=== PATIENT | male | born 1960 | race Caucasian/White ===

== ENCOUNTER 2016-12-02 21:23 | Inpatient (IN) | payer OTHER ==
[~2016-12-02] VITALS: Ht 177.8 cm; Wt 92.5 kg
[~2016-12-02 21:23] MED LIST: 0.9126SP NS; BACL10TA PO; CALC-962 PO; ELECTROLYTE PO; IBUP200C PO; LORA0.5T PO; ONDA8TAB7 PO; PRED50TA PO; PROC-4 PO; RANI150T11 PO; [UNRECOGNIZED DRUG - OTHER] PO
[2016-12-02 21:36] VITALS: BP 117/75; PULSE 134; RESP 16; O2SAT 94
[2016-12-02] MEDS ORDERED: 0.9% Sodium Chloride 1,000 ML IV ONE (21:57)
[2016-12-02 22:42] LABS: Mean Corpuscular Hemoglobin 30.7 pg (27.0-35.0); Mean Corpuscular Volume 94.4 fL (81-100); Platelet Count 55 bil/L (150-400)
[2016-12-02 22:53] LABS: Magnesium 1.9 mg/dL (1.6-2.6)
[2016-12-02] MEDS ORDERED: diphenhydrAMINE 25 mg Capsule PO PRN (23:10)
[2016-12-02] MEDS ORDERED: Cefepime Inj 2 GM in IV Premix 1 EACH IV ONE (23:10)
[2016-12-02] MEDS ORDERED: Cefepime Inj 2,000 MG in Dextrose 5% Minibag Plus 50 ML IV ONE (23:15)
[2016-12-02 23:23] LABS: BASOPHILS % (AUTO) 0 % (0-3); EOSINOPHILS % (AUTO) 6 % (0-5); MONOCYTES % (AUTO) 4 % (4-12); NEUTROPHILS % (AUTO) 80 % (40-74)
--- NOTE | 2016-12-02 23:35 | ED.REPORT ---
HPI-General Illness Date of Service Dec 02, 2016 ED Provider: Joseph Aragon MD History of Present Illness: Patient is a 56 y.o. M with history of Diffuse large B cell lymphoma, no other medical illnesses, leon cath. Last chemo treatment 11/26/16 booster shot for nulasta last thursday. Pateint present with cough since 11/25/16 that continued for one week and worsened in the last 24 hours. Patient noted he felt feverish this afternoon felt cold. Took tylenol with minimal relief. Associated with nausea, productive cough, suffy nose, itchy eyes, headaches. Sick contacts repoted son with sinus infection. Denies dizziness, vomiting, diarrhea, constipation. Nursing Notes Stated Complaint: FEVER, IN CHEMO Chief Complaint: FLU/Cold Symptoms Nursing Notes Reviewed: Yes Allergies: Coded Allergies: Penicillins (Verified Allergy, Unknown, itching, swelling, 12/02/16) Scheduled ([Electrolyte Caps]) 1 CAPSULE PO DAILY Ibuprofen (Ibuprofen) 200 Mg Capsule 200 MG PO prn Prochlorperazine Maleate (Compazine) 10 Mg Tablet 10 MG PO prn Ranitidine (Zantac) 150 Mg Tablet 75 MG PO DAILY Scheduled PRN Baclofen (Baclofen) 10 Mg Tablet 10 MG PO QID PRN PRN prn Calcium Carbonate/Simethicone (Ira-[place] Heartburn+Gas) 750 Mg-80 Mg Tab.chew 1 EACH PO PRN PRN Lorazepam (Lorazepam) 0.5 Mg Tablet 1 MG PO A PRN PRN For Insomnia Ondansetron ODT (Zofran ODT) 8 Mg Tablet 8 MG PO Q4H PRN PRN For Nausea Prednisone (PredniSONE) 50 Mg Tablet 50 MG PO DAILY PRN PRN x 5 days following tx Miscellaneous Medications 0.9 % Sodium Chloride (Nasal Mist) 126 Ml [place] 126 ML NS General Time Seen by MD: 21:45 Chief Complaint Other (Fever, recent chemotherapy) Hx Obtained From: Patient, Spouse Arrived By: Walk-in Onset Occurred: 6 days ago Symptom Duration: Since onset Severity: Current: No pain currently Severity: Maximum: No pain Recent Healthcare: Recent doctor visit (11/26/16 ONCOLOGY ) Past Medical History Past Medical History Diffuse large Bcell Lymphoma Smoking History Never Smoker Social History Alcohol Use: Denies alcohol use Review of Systems Full Review of Systems Constitutional: Reports: Chills, Fatigue, Fever Eyes: Denies: Blurred bilateral Ears / Nose / Throat: Denies: Ear drainage bilateral Respiratory: Reports: Prod cough, white, Shortness of breath Cardiovascular: Denies: Chest pain, Dyspnea on exertion, Syncope GI: Reports: Constipation, Denies: Abdominal pain, Bloody/tarry stool, Diarrhea Complete sys rev & neg: except as marked. Physical Exam Vital Signs Vital Signs Date Time Temp Pulse Resp B/P Pulse Ox O2 Delivery O2 Flow Rate FiO2 12/03/16 01:13 36.9 104 16 115/71 95 Room Air 12/02/16 21:36 37.9 134 16 117/75 94 Room Air Initial VS: Reviewed General/Constitutional: Well-developed, Well-nourished Head / Eyes: Atraumatic, Normocephalic, PERRL ENT: Mucous membranes moist, Conjunctiva normal, No scleral icterus Neck: Supple, Non-tender, Full range of motion Cardiovascular: Heart sounds normal, Intact distal pulses Abdomen / GI: Soft, Non-tender, No guarding, No rebound, No distention Back: No CVA tenderness Lymphatic: No lymphadenopathy General/Constitutional: Awake, Alert, Well appearing Head / Eyes: Normocephalic, PERRL, EOMI ENT: Airway patent, Mucous membranes moist Pharynx / Tonsils / Uvula: Positive: Pharyngeal erythema Nose: Positive: Rhinorrhea Neck: Supple, No meningismus, Full range of motion, No swelling, Non-tender, No masses Respiratory / Chest: Atraumatic, Breath sounds = bilat, No respiratory distress , No retractions, No chest tenderness, No chest wall deformity Wheezing / Retractions: Positive: Wheezing mild Rales / Rhonchi: Negative: Rales L base, Rales R base, Rales bilateral bases Cardiovascular: Regular rhythm, Heart sounds NL, Cap refill not delayed, Peripheral circulation NL Heart Rate / Rhythm: Positive: Tachycardia Abdomen: Non-tender, No guarding, No rebound Lymphatic: No axillary adenopathy, No inguinal adenopathy Adenopathy: Positive: Submental bilateral Interpretation & Diagnostics Lab Results Interpretation Result Diagram: 12/02/16219912/02/16 220 Test 12/02/16 22:00 12/03/16 00:09 White Blood Count 0.9th/mm3 (3.8-10.1) Red Blood Count 3.19mil/mm3 (4.40-5.80) Hemoglobin 9.8g/dL (13.8-17.2) Hematocrit 30.1% (41.0-50.0) Mean Corpuscular Volume 94.4fL (81-100) Mean Corpuscular Hemoglobin 30.7pg (27.0-35.0) Mean Corpuscular Hemoglobin Concent 32.6% (32.0-37.0) Red Cell Distribution Width 14.2% (12.3-15.4) Platelet Count 55bil/L (150-400) Neutrophils (%) (Auto) 80% (40-74) Lymphocytes (%) (Auto) 10% (14-46) Monocytes (%) (Auto) 4% (4-12) Eosinophils (%) (Auto) 6% (0-5) Basophils (%) (Auto) 0% (0-3) Band Neutrophils % 0% (1-5) Sodium Level 137mEq/L (134-144) Potassium Level 3.7mEq/L (3.5-5.2) Chloride Level 100mEq/L (97-108) Carbon Dioxide Level 26mmol/L (18-29) Blood Urea Nitrogen 21mg/dL (6-24) Creatinine 0.77mg/dL (0.76-1.27) Estimat Glomerular Filtration Rate 111mL/min (>59) Glucose Level 135mg/dL (60-99) Lactic Acid Level 1.6mmol/L (0.4-2.0) Calcium Level 8.7mg/dL (8.5-10.1) Magnesium Level 1.9mg/dL (1.6-2.6) Total Bilirubin 0.5mg/dL (0.0-1.2) Aspartate Amino Transf (AST/SGOT) 19U/L (0-50) Alanine Aminotransferase (ALT/SGPT) 47U/L (0-44) Alkaline Phosphatase 79U/L (25-150) Total Protein 5.7g/dL (6.4-8.4) Albumin 3.6g/dL (3.4-5.0) Procalcitonin 0.41ng/mL (0.00-0.08) Urine Color Dark yellow (YELLOW) Urine Appearance Hazy (CLEAR,HAZY) Urine pH 5.5 (5.0-8.0) Urine Specific [place] 1.025 (1.003-1.035) Urine Protein Negativemg/dL (NEG,TRACE) Urine Glucose (UA) Negativemg/dL (NEGATIVE) Urine Ketones Negativemg/dL (NEGATIVE) Urine Occult Blood Trace (NEGATIVE) Urine Nitrite Negative (NEGATIVE) Urine Bilirubin Negative (NEGATIVE) Urine Urobilinogen Normalmg/dL (NORMAL) Urine Leukocyte Esterase Negative (NEGATIVE) Urine RBC 0-2/hpf (0-2) Urine WBC 0-5/hpf (0-5) Urine Epithelial Cells Occasional/hpf (NONE-MOD) Urine Crystals None seen (NONE SEEN) Urine Bacteria None/hpf (NONE-FEW) Urine Hyaline Casts None/lpf (NONE) Urine Granular Casts None seen (NONE SEEN) Urine Waxy Casts None seen (NONE SEEN) Urine Red Blood Cell Casts None seen (NONE SEEN) Urine White Blood Cell Casts None seen (NONE SEEN) Urine Mucus Present (None Seen) Urine Trichomonas None seen (NONE SEEN) Urine Yeast None (NONE SEEN) Urinalysis Comment None Urine Culture Reflexed Not indicated ECG Interpretation ECG Interpretation: Sinus tachycardia Time: 23:26 Abnormal Rate: 130 X-Ray Chest Interpretation View: Portable Interpretation / Wet Read by: Wet read Resident NL X-Ray Chest Findings: No infiltrate, Normal heart size Re-Eval/Medical Decision Med Decision/Clinical Course Severe neutropenia WCT 0.9 with low grade fever 37.9 HR 130 Patient meets criteria for neutropenic fever, meets SIRS criteria MASCC score 17 Patient given bolus 1 L NS IV Started antibiotic therpay Cefapime 2 gm IV Q8 per oncology reccomendations Blood cultures drawn and sent for bacterial and fungal culture Sputum culture sent for stain and culture Viral PCR ordered Chest X-Ray did not show signs of acute pneumonia Urine unlikely source of infection, UA negative for bacteria and WBC, sent fo culture Procalcitonin 0.41, raises concern for underlying bacterial infection Reccomend ID consult in AM Case discussed with Dr. Askew who agrees to see patient tomorrow morning. Patient is a 56 y.o. male with recent chemotherapy 11/26/16 and nulasta therapy 11/28/16 based on patient presenting symptoms and history patient meets criteria for SIRS and neutropenic fever. He will require inpatient admission to r/o serious underlying infection and recieve emperic antibiotic treatment. Patient is immunocompromised and thus needs to be worked up for a broad range of infections both common and opportunisitic. Condition at time of admission is henodyamically stable. Consultation #1: Referral / Consult Name: Manjeet Chapman MD Consulted With: On-call physician (oncology) Requested Call at: 23:28 Call Returned at: 23:29 Centrifugal Supervisor: Will see patient, Agrees with plan Note: Discussed patient presentation with Dr. Askew reccomends 2 g Cefepime Q8 IV, if patient remains symptomatic consider adding zosyn and vancomycin Consultation #2: Referral / Consult Name: Cassandra Scott MD Centrifugal Supervisor: Agrees with plan Note: Discussed need for admit and consultation with Dr. Askew. Counseled Regarding: Diagnosis, Lab results, Need for admission Discharge & Departure Primary Impression: Upper respiratory infection URI type: unspecified viral URI Qualified Code: J06.9 - Acute upper respiratory infection, unspecified Additional Impressions: Fever Fever type: other Qualified Code: R50.81 - Fever presenting with conditions classified elsewhere Neutropenia Neutropenia type: secondary to cancer chemotherapy Qualified Code: D70.1 - Agranulocytosis secondary to cancer chemotherapy Diffuse large B cell lymphoma Lymphoma site: unspecified region Qualified Code: C83.30 - Diffuse large B- cell lymphoma, unspecified site SIRS (systemic inflammatory response syndrome) Disposition: ADMITTED TO HOSPITAL Discharge Condition All VS Reviewed: Yes Condition: Stable Referrals: Arthur Tracy MD (PCP) Attending Statement As attending of record for this patient, I conducted an independent history and physical examination, and agree with the resident documentation as above, and as amended. RAVI SPAERS DO Dec 02, 2016 21:57 Joseph Aragon MD Dec 03, 2016 07:32
[2016-12-02] MEDS: Ondansetron 2 mg/mL 2 mL Inj IV PRN (23:36)
[2016-12-03] VITALS (7 sets, daily range): BP systolic 111–148; BP diastolic 70–82; PULSE 97–117; RESP 16–20; O2SAT 90–97
[2016-12-03 00:15] LABS: APPEARANCE,URINE HAZY (CLEAR,HAZY); COLOR,URINE DARK YELLOW (YELLOW); OCCULT BLOOD,URINE TRACE (NEGATIVE); PH,URINE 5.5 (5.0-8.0); UROBILINOGEN,URINE NORMAL (NORMAL)
[2016-12-03] MEDS: 0.9% Sodium Chloride 1,000 ML IV SCH ×3 (02:35→22:35)
[2016-12-03] MEDS ORDERED: Polyethylene Glycol (PEG) 17 Gm Powder PO PRN (02:35)
[2016-12-03] MEDS ORDERED: Alum-Mag Hydrox-Simeth 30 mL Suspension PO PRN (02:35)
--- NOTE | 2016-12-03 03:08 | PCM.HPMED ---
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 Askew) , and HDL chemotherapy-related agranulocytosis. Last chemo treatment was 2016. He received a booster shot for Nulasta last Thursday. Pateint presented with cough reductive clear sputum, fever, chills, sweats since one week ago that has persisted and worsened in the last 24 hours. Patient reports he took Tylenol with minimal relief. Associated in terms include nausea, productive cough, headaches. He reports his son has a sinus infection. Denies dizziness , vomiting, diarrhea, constipation, dysuria, hematuria, hematochezia, body aches , recent travel. In the ED temperature was 37.9H, pulse 134, respiratory rate 16, blood pressure 117/75, 94% on room air. Repeat vitals showed temperature 36.9, pulse 104, blood pressure 115/71, respirations 16 and 95% room air. Hemogram: White blood cell count 0.9, hemoglobin 9.8, hematocrit 30.1, platelet count 55, neutrophils 80%. UA: Urine color was dark, hazy, trace occult blood, mucus present, otherwise normal Procalcitonin 0.41 EKG: Sinus tachycardia with a rate of 130 CXR: No infiltrate normal heart size Review of Systems: A comprehensive review of systems was conducted and found to be negative except as mentioned in history of present illness. Allergies Coded Allergies: Penicillins (Verified Allergy, Unknown, itching, swelling, 12/02/16) Home Medications ([Electrolyte Caps]) 1 CAPSULE PO DAILY Ibuprofen (Ibuprofen) 200 Mg Capsule 200 MG PO prn Prochlorperazine Maleate (Compazine) 10 Mg Tablet 10 MG PO prn Ranitidine (Zantac) 150 Mg Tablet 75 MG PO DAILY PRN Baclofen (Baclofen) 10 Mg Tablet 10 MG PO QID PRN PRN prn Calcium Carbonate/Simethicone (Ira-[place] Heartburn+Gas) 750 Mg-80 Mg Tab.chew 1 EACH PO PRN PRN Lorazepam (Lorazepam) 0.5 Mg Tablet 1 MG PO A PRN PRN For Insomnia 0.9 % Sodium Chloride (Nasal Mist) 126 Ml [place] 126 ML NS PMH Diffuse large B-cell Lymphoma Surgical History Right orchiectomy August 13 secondary to new diagnosis of diffuse B-cell lymphoma Port-A-Cath July 2016 Left knee surgery Family History Negative history Social History Hx Alcohol Use: Yes Hx Substance Use: No Hx Tobacco Use: No Smoking Status: Never Smoker Living Arrangement: with Family ( is Oct [phone]) Exam Vital Signs Vital Sign - Last Date Time Temp Pulse Resp B/P Pulse Ox O2 Delivery O2 Flow Rate FiO2 12/03/16 01:13 36.9 104 16 115/71 95 Room Air Exam General: Patient appears her stated age, no acute distress, resting comfortably in bed, wearing protective facemask, denies pain HEENT: NC/AT, eyes equally round reactive to light and accommodation, EOMI, neck supple, no adenopathy, no masses no JVD, no thyromegaly, throat no erythema no exudates, Lungs: Very mild crackles heard bilaterally, negative wheezes negative rhonchi, chest with Port-A-Cath of the left anterior chest Heart: Regular rate and rhythm no murmur, S1-S2 Abdomen: Abdomen soft nontender active bowel tones, no rebound no guarding, no fluid wave, no masses, no hepatomegaly, no splenomegaly Genitourinary: CVA tenderness and no suprapubic tenderness, status post right orchiectomy Extremities: No edema bilateral, also is equal bilateral upper/lower extremity Neurologic: No nerves II through XII grossly intact, speech HEENT full sentences , no focal signs, Skin: Skin is warm and dry with good turgor Psychiatric: Mood and affect are upbeat and congruent Lab and Diagnostics Result Diagram: 12/02/16219912/02/162199 X-Rays, CTs and MRIs CXR wet read was no acute cardiopulmonary process normal heart size 12-lead ECG Sinus tachycardia with a rate of 130 Assessment & Plan This is a pleasant 56-year-old male with history of diffuse large B cell lymphoma who presented to [facility] ED with neutropenic fever and B type symptoms. Patient was admitted for further workup and IV antibiotics. # Neutropenic fever, present remission, active -Patient describes fevers chills, sweats, B type symptoms, cough productive of clear mucus, worsening over the past week -In the ED patient had low-grade fever of 37.9 -SIRs criteria for elevated heart rate and temperature -He currently on chemotherapy for diffuse large B-cell lymphoma,Patient just completed fifth and the final cycle of chemotherapy on RCHOP (R rituximab) C cyclophosphamide H doxorubicin (hydroxydaunomycin) O vincristine (Oncovin ) P prednisolone (a steroid). Last cycle was finished on Thursday of last week. -Port-A-Cath placed June 2016 -Patient is followed by oncologist Dr. Askew -Patient received Neulasta injection on 11/26/2016 -Chest x-ray: Wet read showed no acute cardiopulmonary process normal cardiac silhouette -EKG was sinus tachycardia with a rate of 130 -UA was negative for signs of UTI -Pro calcitonin of 0.41 -White blood cell count 0.9, neutrophils 80% -Blood cultures 4 ordered pending -Viral PCR ordered and pending -Place patient on isolation airborne contact precautions -MRSA screen ordered pending -Influenza A and B ordered and pending -Legionella and strep pneumo urine antigen ordered and pending -In the ED patient was given cefepime 2 g -We will repeat for morning labs, CBC, CMP -Recommend infectious disease consult first thing in the morning -Continue empiric antibiotic treatment with cefepime 2 gm Q8H, as recommended by oncology #Thrombocytopenia, present on admission active -Likely related to chemotherapy -Plate account [id number] - we will continue to monitor with serial CBC Disposition: Admitted to in patient service with expected length of stay greater than 2 days, secondary to severity of presenting symptoms, treatment plan, complexity of clinical work up, and risk of adverse events. CODE STATUS: Full code PCP: Arthur Tracy DVT prophylaxis: Subcutaneous heparin Contact: is Oct [phone] Pain Evaluation: Adequate Pain Control VTE Prophylaxis: Sub-Q Heparin (Unfractionated) Resuscitation Status: CPR: Attempt Resuscitation Attending Statement Pt seen and examined by myself and agree with above plan. Deny Hooks DO Dec 03, 2016 02:05 Cassandra Scott MD Dec 03, 2016 06:42
[2016-12-03] MEDS: Heparin 5,000 Unit/mL Inj SUBQ SCH ×3 (08:09→23:44)
[2016-12-03] MEDS ORDERED: Cefepime Inj 2 GM in Dextrose 5% Minibag Plus 50 ML IV SCH (08:30)
--- NOTE | 2016-12-03 08:49 | DRSVH ---
PROCEDURE: X-RAY CHEST ONE VIEW, PORTABLE ([id number]) INDICATIONS: fever TECHNIQUE: One view of the chest was acquired. COMPARISON: [facility], CR, XR CHEST 1VW (PORTABLE), 08/21/2016, 12:22. FINDINGS: Surgical changes and devices: Stable positioning of left subclavian chest port. Lungs and pleura: No pleural effusions or pneumothorax. Lungs are clear. Mediastinum: Mediastinal contours appear normal. Heart size is normal. Bones and chest wall: No suspicious bony lesions. Overlying soft tissues appear unremarkable. IMPRESSION: No acute cardiopulmonary disease. Dictated by: Andi GARSIA Interpreted: Drew Gardner MD on 12/03/2016 at 8:47 Transcribed by: RAYMOND on 12/03/2016 at 8:48 Approved by: Drew Gardner M.D. on 12/03/2016 at 10:38
[2016-12-03] MEDS: Cefepime Inj 2,000 MG in Dextrose 5% Minibag Plus 50 ML IV SCH ×3 (09:07→23:45)
[2016-12-03] MEDS: Ondansetron 2 mg/mL 2 mL Inj IV PRN (10:56)
--- NOTE | 2016-12-03 11:49 | CONS ---
[address] [address] CONSULTATION REPORT PATIENT: ELIZABETH ORELLANA : 1960 MR#: [id number] ADMIT: 12/03/2016 JOB ID: [id number] DATE OF SERVICE: 12/03/2016 INFECTIOUS DISEASE CONSULTATION: I thank Dr. Askew for this timely consult. REASON FOR CONSULTATION: RSV in a patient with borderline neutropenia who is status post recent chemotherapy. HISTORY OF PRESENT ILLNESS: The patient is a previously healthy 56-year-old gentleman who was diagnosed with diffuse B-cell lymphoma of the right testicle in the fall. He underwent orchiectomy which was performed because it was thought he had a testicular cancer, of course, but it turned out to be a large B-cell lymphoma. Bone marrow and PET were negative and he was started on R-CHOP. Just a week ago, he finished his last planned treatment with R-CHOP and he was doing very well including having received some intrathecal chemotherapy. The patient notes that about one week ago he started to have some dry cough, low-grade fever, chills, sweats and headache. He notes that this worsened starting on December 01 and continuing into December 02 and he eventually had a temperature of 101 at home. He had been told to seek medical care if his temperature reached that level and so he presented complaining of the fever to 101, some chills, sweats, generalized malaise and a dry cough. There was also some associated nausea but without vomiting or diarrhea. At no point was he short of breath with exertion or did he have any pleuritic chest pain or significant sputum production. There was no change in his mentation at any point. There has been no recent travel or unusual exposures except for his adult son who has sinusitis by report with persistent cough as well. PAST MEDICAL HISTORY: 1. B-cell lymphoma. 2. Status post right orchidectomy July 2016 which resulted in that diagnosis. 3. Distant history of left knee surgery. SOCIAL HISTORY: The patient drinks alcohol socially but has never smoked. 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 He has never lived overseas. FAMILY HISTORY: Negative including the fact that none of his parents, uncles, aunts or siblings have never had tuberculosis. REVIEW OF SYSTEMS: Was done. The patient states he has had a fairly subtle headache for a week or so. There has been no change in his vision, no sneezing, no sore throat or trouble swallowing. He has had a persistent dry cough for a week without any shortness of breath, pleuritic chest pain or substernal chest pain. There has never been hemoptysis. He has had nausea for several days and he is not sure if this is due to his current febrile illness or chemo. There has been no vomiting and no diarrhea. He has had no dysuria, urgency or frequency nor has he had any problem with the incision site from the right orchidectomy which was done in the fall. He has not noticed any swollen lymph nodes in his neck or his groin. He has had no trouble with ambulation, no swelling joints and no skin rash. Remainder of the review of systems is negative. PHYSICAL EXAMINATION: Reveals an afebrile gentleman, temperature is 37 degrees right now. He was as high as 37.9 on admission. His pulse is currently 113, respiratory rate 20, blood pressure 121/72. He is saturating 90%-95% on room air. The examination of the mental status is completely unremarkable. The patient is clear and able to give an excellent history. He is in no acute distress. Head without trauma. Eyes without conjunctivitis. Nose normal. Oral cavity: No thrush, hairy leukoplakia, pharyngitis or gingivitis. Neck: Supple. No JVD. No supraclavicular or cervical adenopathy. Lungs with a few crackles at the right base. Very localized. Cardiac tones: Regular rate and rhythm without murmur. A port is present in the left upper chest and is benign. The abdomen is soft and nontender without organomegaly. There is no suprapubic fullness and no Lowe catheter. No inguinal or femoral adenopathy is noted. The extremities are without synovitis. Strength is 5/5 throughout. No rash is noted. No edema of the extremities. Neurologically he is completely intact. LABORATORIES: Include a white count last night when he was admitted of 900. There are 80% segs. Absolute neutrophil count is 720 so he does not actually have an absolute neutropenia. His creatinine is 0.77. His LFTs normal except for an ALT slightly up at 47. Procalcitonin is 0.41 on initial measurement. Urinalysis without white cells. Spinal fluid was done a month ago as part of his intrathecal chemotherapy regimen and had only one white cell. Serologically note that the patient is negative for hepatitis B as well as Hep C. Cultures include blood cultures done yesterday which are negative x3 sets. A MRSA screen of the nose is pending. A respiratory viral panel is positive for RSV. A chest x-ray done yesterday is normal. His testicular ultrasound done yesterday shows that the left testicle appears normal. IMPRESSION: This is a patient who was admitted yesterday because of a fever of 101 at home in association with borderline neutropenia. His total absolute neutrophil count though was 720 so he is not actually absolutely neutropenic and we do have another explanation for his fever in that he does have respiratory syncytial virus. He is not short of breath at all and appears entirely comfortable on room air so I see no indication to consider ribavirin or IVIG therapy. There is no strong clinical evidence that he has a bacterial superinfection or an unassociated bacterial infection at this time and I think the most prudent course here would just be to watch while he continues to receive the broad-spectrum cefepime he has been started on. If the patient looks good for a day or two, I think we can go ahead and simply stop his antibiotics. Also note that a recent article suggested that we treat too many people as inpatients with febrile neutropenia. This might be a candidate to be discharged with moxifloxacin as a single antibiotic and then closely watched as an outpatient, but for now I think it is reasonable to keep him in the hospital with cefepime while we wait for maturation of his cultures and avoid any specific RSV therapy. RECOMMENDATIONS: 1. Continue with cefepime. 2. No RSV therapy at this time. 3. Should the patient's respiratory status worsen in any way, will repeat a chest x-ray. 4. I have asked for an incentive spirometer for this patient.
--- NOTE | 2016-12-03 13:51 | NUR ---
filling station laborerdag sprayer note: 56 yrs old male admitted to room 1021 for RSV. S/P R-CHOP chemotherapy Regimen. Patient is independent at home with ADL's. Patient denies any care needs at this time. Will continue to monitor and address any care needs as they arrive.
[2016-12-03] MEDS: 0.9% Sodium Chloride 250 ML IV SCH (14:31)
[2016-12-03] MEDS ORDERED: Sodium Chloride LOK Flush 10 mL Syringe IVFLUSH PRN ×2 (14:35)
[2016-12-03] MEDS ORDERED: HepLOK Flush 100 unit/mL 5 mL Inj IVFLUSH PRN (14:35)
--- NOTE | 2016-12-03 15:45 | NUR ---
Social Work-screening: Data:EMR Reviewed. Pt is a 56 y/o male who was admitted on 12/03/16 per H&P. [facility] and PCP is Arthur Tracy MD. EMR reviewed. Pt resides at home with his where he remains independent with ADLS. Per RN notes, pt has been up independent in his room. Pt is followed by Dr. Askew from Oncology, SW spoke with Nena RN with oncology no confirms needs. Pt's to provide transport home. No discharge needs identified. SW will continue to follow if needs arise. Assessment:Pt who is independent at baseline. Plan:Pt to discharge home when medically stable via POV. No discharge needs identified. SW will continue to follow if needs arise. SUSIE Strong
--- NOTE | 2016-12-03 19:36 | NUR ---
IS IS ordered by ID. In afternoon, no RT had brought IS. Call to RT re: IS and pt teaching performed. At dinner time, pt noted to be performing exercises and stated effective. Stated improved breathing and able to clear his lungs, no sputum. Encouraged pt to be upright for increased lung capacity. Care continues.
--- NOTE | 2016-12-03 19:57 | CCS NOTE ---
[facility] [address], [address] [address] MEDICAL ONCOLOGY OFFICE NOTE PATIENT: ELIZABETH ORELLANA : 1960 MR#: [id number] DATE: 12/03/2016 JOB ID: [id number] DATE: 12/03/2016 HISTORY OF PRESENT ILLNESS: The patient is a 56-year-old gentleman being treated for lymphoma. I was contacted by the ED physician last night with him presenting with fever, malaise and cough and body ache with a temperature of 101. His white count was low with 0.9. Differential was pending. I recommended that he be admitted and started on cefepime pending cultures for neutropenic fever. 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 He received his 5th and final cycle of chemotherapy with R-CHOP a week ago and received Neulasta injection which is long-acting G-CSF on November 28. He has received also five doses of prophylactic intrathecal chemotherapy with methotrexate, the last one on November 25. His absolute neutrophil count is actually better than initially expected since he has 80% neutrophils of 0.9 with an absolute neutrophil count of 720. Platelet count is down to 55 from usually normal. Hemoglobin down to 9.8. His chemistry shows no significant derangements. Vitals show fever around 38 and he has been slightly tachycardic with heart rate around 110. Blood pressure normal. His O2 sat was borderline low with 90% but has improved. His chest x-ray showed no infiltrate. Blood culture has been so far negative but respiratory culture was positive for respiratory syncytial virus (RSV). Urinalysis negative. On exam, he does not appear toxic but weak. His lungs are clear to auscultation. Heart is slightly tachycardic but regular. No rash. No oral cavity lesion. ASSESSMENT: A 56-year-old gentleman with stage IE testicular large B-cell lymphoma who is one week post cycle number five of R-CHOP and five days from receiving long-acting G-CSF Neulasta. He presents with a respiratory infection and flu-like symptoms and mild fever in the setting of moderate neutropenia. I contacted Dr. Herndon for an evaluation by Infectious Disease regarding advisability of active therapy for the RSV virus, although he did not appear very ill. His oxygen level was borderline low but has improved through the rest of the day. His neutropenia should be short-lived and the effects of Neulasta should reverse his neutropenia relatively quickly within the next couple of days. Dr. Herndon felt that the RSV virus infection was not severe enough to require any IVIG which is also what I have in my impression from seeing him today. I expect him to stay in the hospital for one or two days and hopefully see a trend towards improvement of his white count by tomorrow or the day after.
[2016-12-04 01:03] VITALS: BP 114/71; PULSE 108; RESP 18; O2SAT 93
--- NOTE | 2016-12-04 01:49 | NUR ---
Mobility Up ind. and ind. with ADLs.Gait steady yet tires easily.VSS.Denies pain/nausea thus far.Sleeping intermittently and resting comfortably at this time.Will cont. to monitor.
[2016-12-04] MEDS: Ondansetron 2 mg/mL 2 mL Inj IV PRN ×2 (03:17→18:26)
[2016-12-04] MEDS: 0.9% Sodium Chloride 1,000 ML IV SCH ×2 (05:26→16:35)
[2016-12-04 06:08] VITALS: BP 107/68; PULSE 106; RESP 18; O2SAT 93
[2016-12-04 08:00] LABS: Mean Corpuscular Hemoglobin 30.8 pg (27.0-35.0); Mean Corpuscular Volume 93.4 fL (81-100)
[2016-12-04] MEDS: Heparin 5,000 Unit/mL Inj SUBQ SCH (08:30)
[2016-12-04 08:49] LABS: BASOPHILS % (AUTO) 6.3 % (0-3); EOSINOPHILS % (AUTO) 9.4 % (0-5); MONOCYTES % (AUTO) 28.1 % (4-12); NEUTROPHILS % (AUTO) 12.4 % (40-74)
[2016-12-04] MEDS: Cefepime Inj 2,000 MG in Dextrose 5% Minibag Plus 50 ML IV SCH ×2 (09:08→16:34)
[2016-12-04 11:09] VITALS: BP 109/68; PULSE 118; RESP 18; O2SAT 91
[2016-12-04 13:21] VITALS: BP 129/75; PULSE 118; RESP 18; O2SAT 92
--- NOTE | 2016-12-04 13:55 | NUR ---
MCCOLLUM: P: Patient had a headache. 02/25 I: Patient was given 650 mg of Tylenol PO E: Patient's headache went down to a 10-tolerable
--- NOTE | 2016-12-04 14:29 | PROG NOTE ---
[address] [address] PROGRESS NOTE PATIENT: ELIZABETH ORELLANA : 1960 MR#: [id number] ADMIT: 12/03/2016 JOB ID: [id number] DATE: 12/04/2016 INFECTIOUS DISEASE FOLLOWUP NOTE: REASON FOR FOLLOWUP: Neutropenic fever. INTERVAL HISTORY: The patient reports he is feeling considerably better today. He notes his overall energy and mood are improved. He denies sore throat, cough, shortness of breath, chest pain, nausea, vomiting, or diarrhea. No abdominal pain. No dysuria. He does have a little bit of a dry cough but if anything it is better than yesterday. He is curious about when he can be discharged. PHYSICAL EXAMINATION: Reveals a completely afebrile gentleman. He did have a fever to 38.3 yesterday evening. His temperature now 36.7. He has been afebrile for over 12 hours. His pulse is currently about 110, respiratory rate 18, blood pressure 129/75. He is saturating 92% on room air. He is awake and alert. Oral cavity without pharyngitis or thrush. Lungs quite clear bilaterally today. Cardiac tones regular rate and rhythm, with soft 1/6 systolic ejection murmur heard best along the lower left sternal border. A port in the left upper chest is benign. His abdomen is soft and nontender, without organomegaly. He does not have a Lowe catheter. No skin rash is noted. LABORATORIES: Include a white count of 400, a platelet count 39,000. Note that he is neutropenic today and he was not yesterday. Today his total neutrophil count is about only 50, and so it is dramatically lower than yesterday when he still had a neutrophil count of 700. Urinalysis without white cells. Micro includes negative urine Legionella, negative blood cultures, negative MRSA screen, and a positive viral panel for RSV. A Chest x-ray from yesterday is clear. IMPRESSION: This patient now fulfills the diagnosis diagnostic criteria for febrile neutropenia. His neutrophil count was 700 yesterday and now it is about 50 and he did spike a low-grade fever last night. I suspect that his fever as well as his dry cough is secondary to the respiratory syncytial virus that we know he has. I suspect he does not have any underlying bacterial superinfection at this point. RECOMMENDATIONS: 1. Will continue with cefepime now that his white count is low and he has had some fevers. 2. No specific therapy for RSV is indicated. 3. As his white count improves, he can be discharged on oral moxifloxacin.
[2016-12-04] MEDS: 0.9% Sodium Chloride 250 ML IV SCH (14:31)
--- NOTE | 2016-12-04 14:37 | PCM.PNMED ---
Subjective Date of Service Dec 04, 2016 Subjective Follow-up for febrile neutropenia. Patient seen and examined at bedside. He had fever overnight. No chills. Leukopenia and thrombocytopenia is worsening. Abdominal pain, nausea and vomiting, no chest pain or shortness of breath, no cough Exam Vital Signs Vital Sign - Last Date Time Temp Pulse Resp B/P Pulse Ox O2 Delivery O2 Flow Rate FiO2 12/04/16 13:21 36.7 118 18 129/75 92 Room Air Intake and Output 12/03/16 12/03/16 12/04/16 Cumulative From/Thru 15:00 23:00 07:00 12/02/16 21:36 - 12/04/16 06:14 Intake Total 1343 ml 1616 ml 2959 ml Output Total 725 ml 700 ml 1425 ml Balance 618 ml 916 ml 1534 ml Intake Oral 500 ml 400 ml 900 ml IV Total 843 ml 1216 ml 2059 ml Output Urine Total 725 ml 700 ml 1425 ml # Bowel Movements 0 0 0 Exam General, chronically ill-appearing. Well-nourished Neck: Supple, no JVD, motion within normal limits. Chest: Normal respiratory effort, no chest tenderness Lung: Clear bilaterally losing Heart s1-s2 regular activity number under gallop Abdomen: soft non alireza, non distended, no palpable mass. Extremities: no edema, no cyanosis. Neuro : AA)X 3 IVs and Medications Medications Reviewed: Medications were reviewed in detail Lab and Diagnostics Result Diagram: 12/04/16 0745 12/04/16 0745 X-Rays, CTs and MRIs CXR wet read was no acute cardiopulmonary process normal heart size 12-lead ECG Sinus tachycardia with a rate of 130 Assessment & Plan This is a pleasant 56-year-old male with history of diffuse large B cell lymphoma who presented to [facility] ED with neutropenic fever and B type symptoms. Patient was admitted for further workup and IV antibiotics. 1. Neutropenic fever, present remission, active , present on admission 2 Pancytopenia secondary to chemotherapy 3. Testicular large B-cell lymphoma : s/p chemotherapy ( R-CHOP) Continue neutropenic precautions. Patient still febrile in the past 24 hours. Cultures including : blood culture, chest x-ray, urinalysis negative Continue cefepime as per ID. Oncology input and recommendation noted. A data reviewed.: WBC is down Thrombocytopenia worsening. Patient recently received Neulasta and pancytopenia, neutropenia, tumor cytopenia are expected to improve. CBC daily Discontinue heparin for DVT prophylaxis. Start SCD. Out of bed encouraged. VTE Prophylaxis: Sub-Q Heparin (Unfractionated) Resuscitation Status: CPR: Attempt Resuscitation Time spent 25 minutes Mike Fagan MD Dec 04, 2016 14:37
[2016-12-04 16:42] VITALS: BP 109/69; PULSE 113; RESP 18; O2SAT 94
[2016-12-04 20:20] VITALS: BP 116/74; PULSE 110; RESP 16; O2SAT 91
--- NOTE | 2016-12-04 23:45 | PROG NOTE ---
[address] [address] PROGRESS NOTE PATIENT: ELIZABETH ORELLANA : 1960 MR#: [id number] ADMIT: 12/03/2016 JOB ID: [id number] CORRECTED REPORT: DATE: 12/04/2016 SUBJECTIVE: The patient is feeling overall better today with less headaches and body aches. Still some cough. He had a temperature of 38.3 yesterday evening, but has not had any further fevers since then. LABS: Of today shows a further drop of white count now 0.4 with an absolute neutrophil count of less than 100, hemoglobin 8.8, platelets have further dropped to 39 from 55. Chemistry shows no significant abnormalities. EXAMINATION: On exam, his vitals are stable. Temperature 37.0. Heart rate 113. Blood pressure 109/69. O2 sat 94% on room air, although at times it has been down to around 91%. He has no rash. No oral cavity lesion. His blood cultures have remained negative. ASSESSMENT AND PLAN: A 66-year-old gentleman who is admitted with a neutropenic fever and respiratory syncytial viral (RSV) respiratory infection one week after his last cycle of chemotherapy with R-CHOP for testicular lymphoma. This has occurred despite long-acting G-CSF administration with Neulasta on November 28. His white count is still trending downward, and he is now severely neutropenic and had not reached yet his mouna. At this point, he still appears to have only a viral infection and is covered with cefepime to prevent bacterial superinfection. His blood cultures are otherwise negative. I appreciate Dr. Herndon and hospitalist team's input. I am hoping that by Thursday morning his white count has turned around. If we see a reversal trend of his white count which has happened in the next couple of days, Dr. Herndon suggests he could be switched to oral antibiotics and to be discharged home. I will be out of office but would be available over the phone for any questions. Dr. Jhaveri will be on-call over the weekend from Oncology. Corrected by ZOHRA 02/13/17 at 2:01pm Account number.
[2016-12-05] MEDS: Cefepime Inj 2,000 MG in Dextrose 5% Minibag Plus 50 ML IV SCH ×3 (00:49→17:05)
[2016-12-05] MEDS: 0.9% Sodium Chloride 1,000 ML IV SCH ×2 (02:21→17:04)
[2016-12-05 04:39] VITALS: BP 126/78; PULSE 93; RESP 18; O2SAT 94
--- NOTE | 2016-12-05 05:32 | NUR ---
Headache/ Insomnia Pt. had not slept most of the night. This RN asked pt. if there was anything we could do to make him comfortable. Pt. stated "nothing really". Later on in shift, pt. reported a headache of a rating of 3/10. PO Tylenol given. Pt. went to sleep after Tylenol was given. Will continue to monitor.
[2016-12-05 05:34] LABS: Mean Corpuscular Volume 92.5 fL (81-100)
[2016-12-05 08:46] LABS: BASOPHILS % (AUTO) 0 % (0-3); EOSINOPHILS % (AUTO) 0 % (0-5); MONOCYTES % (AUTO) 22 % (4-12); NEUTROPHILS % (AUTO) 52 % (40-74)
--- NOTE | 2016-12-05 13:05 | NUR ---
dentistforeign banknote teller note: When I walked into patient's room today, Patient was taping his nostrils so he did not have to breath the smell from his portacath. I asked patient if it was the Normal Saline IV he was smelling, because patient with the portacath will smell or taste the normal saline when the portacath is being flushed. Patient stated it smells like it is coming from here and he points to his portacath. Patient states the portacath dressing was changed and IV therapy tried several things to see if he could smell the dressing. I discussed with patient about using a gauze type dressing and he was agreeable. I also discussed with patient that the smell could be coming from the IV fluids and we could see if they would be able to discontinue the Normal Saline and he was agreeable. I contacted IV therapy and spoke with Neida. Neida will come and change the dressing to see if that helps. I talked with patient's nurse to see if they could maybe discontinue the continuous Iv fluids. I encouraged patient to suck on peppermints which helps with the smell or taste of saline flushing through the portacath. No other care needs identified. will continue to follow and address any care needs as they arise.
[2016-12-05 14:17] VITALS: BP 125/75; PULSE 96; RESP 18; O2SAT 93
[2016-12-05] MEDS: 0.9% Sodium Chloride 250 ML IV SCH (14:31)
--- NOTE | 2016-12-05 14:35 | NUR ---
Sensitivity to Smell Upon assessment this morning pt was very agitated from the smell coming from his port. laundry marker supervisor helped the pt to cover the smell with plastic (pt thought that it may help). This intervention did not help. Called IV therapy to change the dressing. After IV therapy changed dressing pt was still c/o sensitivity to smell. Pt said soap he used to shower yesterday may be affecting him. Gave him washcloths to help him wipe scent off, and offered a shower. Pt declined shower when aide came to help. Oncology correctional case records supervisor RN suggested buy some mints to help curb the smell and suggested the dressing be changed again. IV therapy changed the dressing. Pt sensitive to handwashing and hand director of teacher education smell. When asked again how he is doing he stated "much better". Pt's son brought in nose plugs and pt is currently not taping his nose. Pt's states that a week after chemo he is often very sensitive to smells. is going to bring him some mints. Will continue to monitor and help make pt comfortable.
--- NOTE | 2016-12-05 16:05 | PCM.PNMED ---
Subjective Date of Service Dec 05, 2016 Subjective Follow-up for note of any fever. Patient is quite axis today and complaining about this male of the dressing over his port and the antibiotics running. Multiple measures were taken by nursing staff to dissipate this smell without success. Patient denied any chills, no chest benefits of breath. He is afebrile over the past 24 hours Exam Vital Signs Vital Sign - Last Date Time Temp Pulse Resp B/P Pulse Ox O2 Delivery O2 Flow Rate FiO2 12/05/16 14:17 36.7 96 18 125/75 93 Room Air Intake and Output 12/04/16 12/04/16 12/05/16 Cumulative From/Thru 15:00 23:00 07:00 12/02/16 21:36 - 12/05/16 06:24 Intake Total 1304 ml 2729 ml 6992 ml Output Total 400 ml 440 ml 2265 ml Balance 904 ml 2289 ml 4727 ml Intake Oral 200 ml 250 ml 1350 ml IV Total 1104 ml 2479 ml 5642 ml Output Urine Total 400 ml 440 ml 2265 ml # Bowel Movements 0 0 0 Exam General: Chronically ill appearing. Anxious. HEENT: Sclerae anicteric Neck: Supple, no JVD, no carotid bruit Chest: Respiratory effort, no use of accessory muscle Lung: Clear bilaterally,, no wheezing Heart: s1-s2 regular rate and rhythm Abdomen: benign Extremity: no edema, no cyanosis, no calf tenderness Neuro : Awake and alert. Anxious IVs and Medications Medications Reviewed: Medications were reviewed in detail Lab and Diagnostics Result Diagram: 12/05/16 0500 12/04/16 0745 X-Rays, CTs and MRIs CXR wet read was no acute cardiopulmonary process normal heart size 12-lead ECG Sinus tachycardia with a rate of 130 Assessment & Plan This is a pleasant 56-year-old male with history of diffuse large B cell lymphoma who presented to [facility] ED with neutropenic fever and B type symptoms. Patient was admitted for further workup and IV antibiotics. 1. Neutropenic fever, present remission, active , present on admission 2 Pancytopenia secondary to chemotherapy 3. Testicular large B-cell lymphoma : s/p chemotherapy ( R-CHOP) Patient is afebrile over the last 24 hours . Continue empiric cefepime neutropenic precautions. Plan culture is negativer ID. Oncology input and recommendation noted. WBC slightly up as well as platelet count. Patient previously received Neulasta. Continuing dictation monitoring. Patient remained afebrile over the next 24 hours he may be discharged in moxifloxacin ID consult recommendation appreciated Repeat CBC and BMP in a.m. VTE Prophylaxis: Sub-Q Heparin (Unfractionated) Resuscitation Status: CPR: Attempt Resuscitation Time spent 25 minutes Mike Fagan MD Dec 05, 2016 16:05
--- NOTE | 2016-12-05 18:28 | PROG NOTE ---
[address] [address] PROGRESS NOTE PATIENT: ELIZABETH ORELLANA : 1960 MR#: [id number] ADMIT: 12/03/2016 JOB ID: [id number] DATE: 12/05/2016 REASON FOR FOLLOWUP: Febrile neutropenia with RSV pulmonary infection. INTERVAL HISTORY: Overnight, the patient has felt very well. No fevers, chills, or sweats. No headache, no visual complaints, no sore throat. His cough is diminishing and he is not short of breath. No chest pain. No nausea, vomiting, diarrhea, or dysuria. PHYSICAL EXAMINATION: Reveals an afebrile gentleman 36.7 on the temperature, pulse 96, respiratory rate 18, blood pressure 125/75. He is saturating well on room air. Examination of the mental status reveals it to be clear. Oral cavity without pharyngitis. Lungs quite clear bilaterally. Cardiac tones without murmur. The patient's left upper chest port appears benign. His abdomen is soft and nontender. No skin rash noted. LABORATORIES: Include a white count 900, which is 52% segs and 5% bands, so the patient strictly speaking is no longer neutropenic, as his neutrophil count is just about exactly 500. Platelets 43,000. Creatinine 0.83. Albumin 3.2. Blood cultures are negative. MRSA screen negative. Respiratory viral panel positive for RSV. IMAGING: None new has been done. IMPRESSION: This patient's fevers and neutropenia are resolving. At this point he looks completely stable. His cough is secondary to his respiratory syncytial virus infection, which is on its way to resolving as well. RECOMMENDATIONS: 1. I continue with cefepime through tomorrow morning. 2. If his neutrophil count is 500 or more, I think the patient could be discharged. 3. Note that the patient will have completed about four days of IV cefepime as of tomorrow. If he is to be discharged tomorrow, I would send him out with only three more days of moxifloxacin 400 mg once a day to complete a week of therapy for this febrile neutropenia episode with negative cultures, except the PCR of course, which demonstrated the RSV. Thank you very much. If I can be of any assistance, give me a call.
[2016-12-05 20:02] VITALS: BP 118/73; PULSE 109; RESP 18; O2SAT 93
[2016-12-06] MEDS: Cefepime Inj 2,000 MG in Dextrose 5% Minibag Plus 50 ML IV SCH ×2 (00:29→09:21)
--- NOTE | 2016-12-06 04:20 | NUR ---
Update Pt. has been sleeping more during this shift. Pt. is still sensitive to smells, but has no complaints of nausea. Pt. reports no headache or pain so far. Will continue to monitor.
[2016-12-06] MEDS: 0.9% Sodium Chloride 1,000 ML IV SCH (05:09)
[2016-12-06 05:14] VITALS: BP 129/80; PULSE 91; RESP 16; O2SAT 94
--- NOTE | 2016-12-06 08:55 | PCM.DIMED ---
Discharge Instructions Date of Service Dec 06, 2016 Dates of Hospitalization Dec 03, 2016 at 06:00 Discharge Diagnosis Discharge Diagnosis Testicular Large B cell lymphoma,Pancytopenia due to chemotherapy, Neutropenic fever Diet No restrictions Activity No restrictions Call your provider Fever or Chills, Shortness of breath Patient Instructions Follow up with Primary care doctor and oncology within 5 days Follow-up plan Follow up with Primary care doctor and oncology within 5 days Mike Fagan MD Dec 06, 2016 08:55
--- NOTE | 2016-12-06 08:57 | PCM.DIMED ---
Discharge Instructions Date of Service Dec 06, 2016 Dates of Hospitalization Dec 03, 2016 at 06:00 Discharge Diagnosis Discharge Diagnosis Testicular Large B cell lymphoma,Pancytopenia due to chemotherapy, Neutropenic fever Diet No restrictions Activity No restrictions Call your provider Fever or Chills, Shortness of breath Patient Instructions Follow up with Primary care doctor and oncology within 5 days Oncologist to continue steroid ( Prednisone ) tapering Follow-up plan Follow up with Primary care doctor and oncology within 5 days Oncologist to continue steroid ( Prednisone ) tapering Mike Fagan MD Dec 06, 2016 08:57
[2016-12-06] MEDS ORDERED: MOXI400T32 PO (08:59)
[2016-12-06 09:22] LABS: BASOPHILS % (AUTO) 1.1 % (0-3); EOSINOPHILS % (AUTO) 1.4 % (0-5); MONOCYTES % (AUTO) 16.8 % (4-12); Mean Corpuscular Hemoglobin 31.1 pg (27.0-35.0); Mean Corpuscular Volume 92.3 fL (81-100); NEUTROPHILS % (AUTO) 64.3 % (40-74); Platelet Count 75 bil/L (150-400)
[2016-12-06] MEDS ORDERED: PRED50TA PO (09:49)
--- NOTE | 2016-12-06 12:47 | PCM.DC.MED ---
Discharge Summary Date of Service Dec 06, 2016 Dates of Hospitalization Date of Hospital Admission Dec 03, 2016 at 06:00 Date of Discharge: Dec 06, 2016 Providers: Admitting Physician: Cassandra Scott MD Primary Care Physician: Arthur Tracy MD Attending Physician: Cassandra Scott MD Diagnosis at Time of Discharge Diagnosis at Time of Discharge Testicular Large B cell lymphoma,Pancytopenia due to chemotherapy, Neutropenic fever Consultations Infectious diseases, hematology/oncology Procedures XRay, CTs & MRIs CXR wet read was no acute cardiopulmonary process normal heart size ECG 12 Lead Sinus tachycardia with a rate of 130 Brief History Patient is a 56 Y/O M with past medical hx of 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 Askew) , and HDL chemotherapy-related agranulocytosis. Last chemo treatment was 2016. He received a booster shot for Nulasta last Thursday. Pateint presented with cough reductive clear sputum, fever, chills, sweats since one week ago that has persisted and worsened in the last 24 hours. Patient reports he took Tylenol with minimal relief. Associated in terms include nausea, productive cough, headaches. He reports his son has a sinus infection. Denies dizziness , vomiting, diarrhea, constipation, dysuria, hematuria, hematochezia, body aches , recent travel. Hospital Course This is a pleasant 56-year-old male with history of diffuse large B cell lymphoma who presented to [facility] ED with neutropenic fever and B type symptoms. Patient was admitted for further workup and IV antibiotics. 1. Neutropenic fever, present remission, active , present on admission 2 Pancytopenia secondary to chemotherapy 3. Testicular large B-cell lymphoma : s/p chemotherapy ( R-CHOP) Patient is afebrile over the last 48 hours prior to discharge. He was treated with empiric cefepime for 4 days. Upon culture negative except for RSV. He was seen by oncology and infectious disease over the course of hospital stay. Patient continued to be pancytopenic and neutropenic with WBC and neutrophil count are rising as well as platelets count Patient is being discharged home on moxifloxacin 400 mg orally daily for 5 days. He will follow as outpatient oncology within 5 days.. Prednisone is being tapered, currently on 50 mg orally daily. His oncologist Dr. Garza continue to taper. Patient is instructed to return to the hospital if he developed fever shortness of breath or chills. He is discharged in stable condition Exam Vital Signs (Last) Date Time Temp Pulse Resp B/P Pulse Ox O2 Delivery O2 Flow Rate FiO2 12/06/16 05:14 36.7 91 16 129/80 94 Room Air Exam General: Chronically ill appearing. NAD HEENT: RDEW. Sclerae anicteric Neck: Supple, no JVD, no carotid bruit, no cervical lymphadenopathy Chest: Respiratory effort, no chest wall tenderness Lung: Clear bilaterally on auscultation, no wheezing, no crackles Heart: s1-s2 regular rate and rhythm Abdomen: Soft, non-tender, non-distended. No visible mass Extremity: no edema, no cyanosis, no calf tenderness Neuro : Awake , alert and orientedx 3. Grossly non focal Test 12/02/16 21:57 12/02/16 22:00 12/03/16 00:09 12/04/16 07:45 Urine Legionella pneumophilia Ag Negative (Negative) Hemoglobin A1c 5.2% (4.8-5.6) Lactic Acid Level 1.6mmol/L (0.4-2.0) Magnesium Level 1.9mg/dL (1.6-2.6) Procalcitonin 0.41ng/mL (0.00-0.08) Urine Color Dark yellow (YELLOW) Urine Appearance Hazy (CLEAR,HAZY) Urine pH 5.5 (5.0-8.0) Urine Specific [place] 1.025 (1.003-1.035) Urine Protein Negativemg/dL (NEG,TRACE) Urine Glucose (UA) Negativemg/dL (NEGATIVE) Urine Ketones Negativemg/dL (NEGATIVE) Urine Occult Blood Trace (NEGATIVE) Urine Nitrite Negative (NEGATIVE) Urine Bilirubin Negative (NEGATIVE) Urine Urobilinogen Normalmg/dL (NORMAL) Urine Leukocyte Esterase Negative (NEGATIVE) Urine RBC 0-2/hpf (0-2) Urine WBC 0-5/hpf (0-5) Urine Epithelial Cells Occasional/hpf (NONE-MOD) Urine Crystals None seen (NONE SEEN) Urine Bacteria None/hpf (NONE-FEW) Urine Hyaline Casts None/lpf (NONE) Urine Granular Casts None seen (NONE SEEN) Urine Waxy Casts None seen (NONE SEEN) Urine Red Blood Cell Casts None seen (NONE SEEN) Urine White Blood Cell Casts None seen (NONE SEEN) Urine Mucus Present (None Seen) Urine Trichomonas None seen (NONE SEEN) Urine Yeast None (NONE SEEN) Urinalysis Comment None Urine Culture Reflexed Not indicated Sodium Level 138mEq/L (134-144) Potassium Level 4.4mEq/L (3.5-5.2) Chloride Level 103mEq/L (97-108) Carbon Dioxide Level 25mmol/L (18-29) Blood Urea Nitrogen 13mg/dL (6-24) Creatinine 0.83mg/dL (0.76-1.27) Estimat Glomerular Filtration Rate 102mL/min (>59) Glucose Level 93mg/dL (60-99) Calcium Level 8.2mg/dL (8.5-10.1) Total Bilirubin 0.7mg/dL (0.0-1.2) Aspartate Amino Transf (AST/SGOT) 14U/L (0-50) Alanine Aminotransferase (ALT/SGPT) 30U/L (0-44) Alkaline Phosphatase 66U/L (25-150) Total Protein 5.1g/dL (6.4-8.4) Albumin 3.2g/dL (3.4-5.0) Test 12/05/16 05:00 12/06/16 08:45 Band Neutrophils % 5% (1-5) White Blood Count 3.7th/mm3 (3.8-10.1) Red Blood Count 3.38mil/mm3 (4.40-5.80) Hemoglobin 10.5g/dL (13.8-17.2) Hematocrit 31.2% (41.0-50.0) Mean Corpuscular Volume 92.3fL (81-100) Mean Corpuscular Hemoglobin 31.1pg (27.0-35.0) Mean Corpuscular Hemoglobin Concent 33.7% (32.0-37.0) Red Cell Distribution Width 14.3% (12.3-15.4) Platelet Count 75bil/L (150-400) Neutrophils (%) (Auto) 64.3% (40-74) Lymphocytes (%) (Auto) 10.5% (14-46) Monocytes (%) (Auto) 16.8% (4-12) Eosinophils (%) (Auto) 1.4% (0-5) Basophils (%) (Auto) 1.1% (0-3) Discharge Medications Discharge Medications ([Electrolyte Caps]) 1 CAPSULE PO DAILY (Reported) Ibuprofen (Ibuprofen) 200 Mg Capsule 200 MG PO prn (Reported) Moxifloxacin (Moxifloxacin) 400 Mg Tablet 400 MG PO DAILYWD Prescribed by: SUZETTE FAGAN MD Prochlorperazine Maleate (Compazine) 10 Mg Tablet 10 MG PO prn (Reported) Ranitidine (Zantac) 150 Mg Tablet 75 MG PO DAILY (Reported) As needed Baclofen (Baclofen) 10 Mg Tablet 10 MG PO QID PRN PRN prn (Reported) Calcium Carbonate/Simethicone ([place] Heartburn+Gas) 750 Mg-80 Mg Tab.chew 1 EACH PO PRN PRN (Reported) Lorazepam (Lorazepam) 0.5 Mg Tablet 1 MG PO A PRN PRN For Insomnia (Reported) Ondansetron ODT (Zofran ODT) 8 Mg Tablet 8 MG PO Q4H PRN PRN For Nausea ( Reported) Prednisone (PredniSONE) 50 Mg Tablet 50 MG PO DAILY PRN PRN x 5 days following tx Prescribed by: SUZETTE FAGAN MD Miscellaneous Medications 0.9 % Sodium Chloride (Nasal Mist) 126 Ml [place] 126 ML NS (Reported) Followup Plan Disposition: Home Follow-up plan Follow up with Primary care doctor and oncology within 5 days Oncologist to continue steroid ( Prednisone ) tapering Discharge Diet: No restrictions Discharge Activity: No restrictions Patient Instructions Follow up with Primary care doctor and oncology within 5 days Oncologist to continue steroid ( Prednisone ) tapering Time spent 35 minutes. Patient seen and examined on the day of discharge. All aspect of discharge discussed with patient in detail, all his questions and concerns were addressed Suzette Fagan MD Dec 06, 2016 12:47
--- NOTE | 2016-12-06 13:00 | NUR ---
Discharge Pt discharged via POV and one person attending via W/C. Pt given all instruction, questions all answered.
--- NOTE | 2016-12-06 13:19 | PROG NOTE ---
[address] [address] PROGRESS NOTE PATIENT: ELIZABETH ORELLANA : 1960 MR#: [id number] ADMIT: 12/03/2016 JOB ID: [id number] DATE: 12/06/2016 INFECTIOUS DISEASE FOLLOW UP NOTE: REASON FOR FOLLOW UP: RSV pneumonitis with febrile neutropenia. INTERVAL HISTORY: Overnight, the patient has been free of fevers, chills or sweats. He no longer has any significant cough or pulmonary symptom. No rash or GI symptoms noted. PHYSICAL EXAMINATION: Reveals an afebrile gentleman, temperature 36.7, pulse 91, respiratory rate 16, blood pressure 129/80, saturating well on room air. In no acute distress. No skin rash noted. The lungs with a few crackles especially at the right base. Little change from yesterday. No respiratory difficulty whatsoever. Abdomen benign. LABORATORIES: Include a white count which has jumped to 3700. The differential includes 60% segs so he now has over 2000 polys. Creatinine 0.83. Procalcitonin 0.41 on the 14th, not repeated. Culture is negative except for the multiplex PCR that was positive for RSV. IMPRESSION: This patient has dramatically improved. Afebrile and appears ready to be discharged. As I noted yesterday, I would send him out with 3-4 more days of moxifloxacin 400 mg a day. I have checked his QTc interval and it is acceptable for the use of moxifloxacin. RECOMMENDATIONS.: 1. Okay to discharge the patient on four additional days of moxifloxacin. 2. ID will go ahead and sign off at this time. Note that the patient has a prescription for prednisone 50 mg a day for five days. Both the patient and I are uncertain as to what the intent is with this prednisone and I have placed a call to Dr. Fagan, the hospitalist, to clarify this before the patient goes home.
[2016-12-11] MEDS ORDERED: ACET-2561 PO (12:24)
== END 2016-12-06 13:47 | disposition home or self-care (01) | DRG 194 ==
LOC: SED 21:23 → OSC 12-03 06:00
PROVIDERS: ADMIT Specialist; ATTEND Specialist
DX: J12.1 Respiratory syncytial virus pneumonia (principal); C83.35 Diffuse large B-cell lymphoma, lymph nodes of inguinal region and lower limb; D70.1 Agranulocytosis secondary to cancer chemotherapy; R50.81 Fever presenting with conditions classified elsewhere; T45.1X5A Adverse effect of antineoplastic and immunosuppressive drugs, initial encounter; D69.6 Thrombocytopenia, unspecified